=== PATIENT | female | born 1995 | race Asian ===

== ENCOUNTER 2018-03-06 17:15 | Emergency (ER) | payer BC, OTHER ==
[2018-03-06 19:24] LABS: ADD MAN DIFF? NO
[2018-03-06 19:28] LABS: BASOPHILS % 0.2 % (0.0-2.0); EOSINOPHILS % 0.2 % (0.0-7.0); HEMATOCRIT 41.3 % (37.0-47.0); HEMOGLOBIN 13.5 g/dl (12.0-16.0); LYMPHOCYTES # 0.8 10^3/ul (0.8-2.9); LYMPHOCYTES % 9.3 % (15.0-51.0); MEAN CORPUSCULAR HEMOGLOBIN 26.7 pg (29.0-33.0); MEAN CORPUSCULAR HGB CONC 32.7 g/dl (32.0-37.0); MEAN CORPUSCULAR VOLUME 81.8 fl (82.0-101.0); MEAN PLATELET VOLUME 9.8 fl (7.4-10.4); MONOCYTE # 0.8 10^3/ul (0.3-0.9); NEUTROPHIL # 6.9 10^3/ul (1.6-7.5); NEUTROPHILS % 80.9 % (39.0-77.0); PLATELET COUNT 209 10^3/UL (140-415); RED BLOOD COUNT 5.05 10^6/ul (4.20-5.40); RED CELL DISTRIBUTION WIDTH 13.8 % (11.5-14.5)
[2018-03-06 19:28] LABS: WHITE BLOOD COUNT 8.5 10^3/ul (4.8-10.8)
[2018-03-06] MEDS: ONDANSETRON 4 MG INJ IV (19:37)
[2018-03-06] MEDS: SOD CHLORIDE 0.9% 1,000 ML IV (19:37)
[2018-03-06] MEDS: morphine 4 MG/ML VIAL IV ×2 (19:37→21:04)
[2018-03-06 19:41] LABS: ALANINE AMINOTRANSFERASE 18 IU/L (13-69); ALBUMIN 4.5 g/dl (3.3-4.9); ALBUMIN/GLOBULIN RATIO 1.18; ALKALINE PHOSPHATASE 101 IU/L (42-121); ANION GAP 18 (8-16); ASPARTATE AMINO TRANSFERASE 20 IU/L (15-46); BILIRUBIN,INDIRECT 0.3 mg/dl (0-1.1); BILIRUBIN,TOTAL 0.3 mg/dl (0.2-1.3); BLOOD UREA NITROGEN 9 mg/dl (7-20); CALCIUM 9.6 mg/dl (8.4-10.2); CARBON DIOXIDE 26 mmol/L (21-31); CHLORIDE 102 mmol/L (97-110); CREATININE 0.83 mg/dl (0.44-1.00); GLUCOSE 152 mg/dl (70-220); POTASSIUM 4.1 mmol/L (3.5-5.1); SODIUM 142 mmol/L (135-144); TOTAL PROTEIN 8.3 g/dl (6.1-8.1)
[2018-03-06 19:46] LABS: URINE BLOOD (Dip) POC Negative (NEGATIVE); URINE GLUCOSE (Dip) POC Negative (NEGATIVE); URINE KETONES (Dip) POC Negative (NEGATIVE); URINE LEUKOCYTE EST (Dip) POC Negative (NEGATIVE); URINE NITRITE (Dip) POC Negative (NEGATIVE); URINE TOTAL PROTEIN POC 2+ (NEGATIVE)
[2018-03-06] MEDS: ACETAMINOPHEN 325 MG TAB PO ×2 (20:33→20:51)
[2018-03-06] MEDS: SODIUM CHLORIDE 0.9% 1L BAG IV* (20:51)
[2018-03-06] MEDS: PIPER-TAZO 3.375 GM IV (PMX) 100 ML IVPB (20:51)
[2018-03-06 21:31] LABS: LACTIC ACID 1.8 mmol/L (0.5-2.0)
[2018-03-06] MEDS: HYDROCODONE/APAP (5/325) TAB PO (22:54)
== END 2018-03-06 23:01 | disposition home or self-care (01) ==
LOC: E/R 17:15
DX: A41.9 Sepsis, unspecified organism (principal); R10.2 Pelvic and perineal pain
CPT/HCPCS: 36415; 74177; 80053; 81003; 81025; 83605; 85025; 87040; 96374; 96375; 96376; 99291-25